=== PATIENT | female | born 1995 | race African-American/Black ===

== ENCOUNTER 2016-10-07 14:20 | Emergency (ER) | payer OTHER ==
[~2016-10-07] VITALS: Ht 162.6 cm; Wt 54.4 kg
[2016-10-07 14:30] VITALS: BP 126/61
[2016-10-07] MEDS ORDERED: ALPRAZolam 0.25mg tab ORAL ONE (14:30)
--- NOTE | 2016-10-09 07:19 | Emergency Room Report ---
History of Present Illness General Chief Complaint: Behavioral Complaint Source: Patient, EMS Present Illness HPI 21-year-old female presents ED for intermediate clearance. Patient is in police custody. Patient is apparently very anxious. "Feels dehydrated". Tachycardic in triage. Patient states she has anxiety. Denies any chest pain or shortness of breath. Denies any drug use. Denies any suicidal homicidal ideation. No aggravating relieving factors. Denies any other associated symptoms Allergies: Coded Allergies: No Known Allergies (Unverified , 10/07/16) Patient History Past Medical History: psych hx Past Surgical History: none Pertinent Family History: none Social History: Denies: smoking, alcohol use, drug use Last Menstrual Period: UNK Now: No Immunizations: UTD Reviewed Nursing Documentation: PMH: Agreed, PSxH: Agreed Nursing Documentation-PMH Past Medical History: No History, Except For History Of Psychiatric Problem: Yes - DEPRESSION, BIPOLAR Review of Systems All Other Systems: negative except mentioned in HPI Physical Exam Vital Signs Date Time Temp Pulse Resp B/P (MAP) Pulse Ox O2 Delivery O2 Flow Rate FiO2 10/07/16 14:15 98.6 110 16 126/61 99 Room Air Sp02 EP Interpretation: reviewed, normal General Appearance: no apparent distress, alert, GCS 15, non-toxic Head: normocephalic, atraumatic Eyes: bilateral eye normal inspection, bilateral eye PERRL ENT: hearing grossly normal, normal pharynx, no angioedema, normal voice Neck: full range of motion, supple/symm/no masses Respiratory: chest non-tender, lungs clear, normal breath sounds, speaking full sentences Cardiovascular #1: regular rate, rhythm, no edema Cardiovascular #2: 2+ carotid (R), 2+ carotid (L), 2+ radial (R), 2+ radial (L) , 2+ dorsalis pedis (R), 2+ dorsalis pedis (L) Gastrointestinal: normal bowel sounds, non tender, soft, non-distended, no guarding, no rebound Rectal: deferred Genitourinary: normal inspection, no CVA tenderness Musculoskeletal: back normal, gait/station normal, normal range of motion, non- tender Neurologic: alert, oriented x3, responsive, motor strength/tone normal, sensory intact, speech normal Psychiatric: judgement/insight normal, memory normal, anxious Reflexes: 3+ bicep (R), 3+ bicep (L), 3+ tricep (R), 3+ tricep (L), 3+ knee (R) , 3+ knee (L) Skin: normal color, no rash, warm/dry, well hydrated Lymphatic: no adenopathy Medical Decision Making Diagnostic Impression: Primary Impression: Medical clearance for incarceration Additional Impression: Anxiety ER Course Hospital Course 21-year-old female presents to ED for intermediate clearance. c/o anxiety after arrest Clinical course Patient placed on stretcher. Handcuffs. After initial history, physical exam reveals a young female in no acute distress. physical exam was unremarkable. Patient does appear anxious but is no danger to herself or others. No suicidal or homicidal ideation. She tachycardic but on reassessment is feeling better. Patient given water. Given Xanax. I believe patient be safely discharged into police custody. Diagnosis - medical clearance for incarceration , anxiety stable and discharged into police custody Last Vital Signs Date Time Temp Pulse Resp B/P (MAP) Pulse Ox O2 Delivery O2 Flow Rate FiO2 10/07/16 14:30 98.6 16 126/61 99 Room Air 10/07/16 14:15 110 Status: improved Disposition: D/C TO LAW ENFORCEMENT IN CUST Condition: Stable Referrals: NOT CHOSEN IPA/,REFERRING (PCP) Departure Forms: Prison Clearance Patient Instructions: Palpitations, [id number] FABIAN CASAS M.D. Oct 09, 2016 07:19
== END 2016-10-07 14:30 ==
LOC: EDBD 14:20 → EMR 14:25
DX: F41.9 Anxiety disorder, unspecified (principal); F31.9 Bipolar disorder, unspecified
CPT/HCPCS: 99282